=== PATIENT | female | born 1940 | race Caucasian/White ===

== ENCOUNTER → 2017-03-05 | Outpatient (CLI) | payer OTHER | END | disposition home or self-care (01) | LOC: PCVCCLINIC 12:47 | PROVIDERS: ATTEND Internal Medicine Cardiovascular Disease | DX: I25.10 Atherosclerotic heart disease of native coronary artery without angina pectoris (principal); I10 Essential (primary) hypertension; E78.5 Hyperlipidemia, unspecified; K21.9 Gastro-esophageal reflux disease without esophagitis; J44.9 Chronic obstructive pulmonary disease, unspecified; I77.9 Disorder of arteries and arterioles, unspecified; Z83.49 Family history of other endocrine, nutritional and metabolic diseases; Z72.0 Tobacco use; Z82.49 Family history of ischemic heart disease and other diseases of the circulatory system; Z79.899 Other long term (current) drug therapy; Z88.2 Allergy status to sulfonamides | CPT/HCPCS: 80061; 93005; G0463 ==

== ENCOUNTER → 2017-08-14 | Outpatient (CLI) | payer OTHER ==
[~2017-08-14] MED LIST: REGADENOSON 0.4 MG/5 ML DISP.SYRIN. IV
== END | disposition home or self-care (01) ==
LOC: PCVCIMAG 09:00
DX: R07.9 Chest pain, unspecified (principal); I10 Essential (primary) hypertension; E78.5 Hyperlipidemia, unspecified; I25.10 Atherosclerotic heart disease of native coronary artery without angina pectoris; Z72.0 Tobacco use
CPT/HCPCS: 78452; 93017; A9500; J2785

== ENCOUNTER → 2018-02-26 | Outpatient (CLI) | payer OTHER | END | disposition home or self-care (01) | LOC: PCVCCLINIC 13:21 | PROVIDERS: ATTEND Internal Medicine Cardiovascular Disease | DX: I25.10 Atherosclerotic heart disease of native coronary artery without angina pectoris (principal); R94.31 Abnormal electrocardiogram [ECG] [EKG]; M25.551 Pain in right hip; E78.00 Pure hypercholesterolemia, unspecified; I10 Essential (primary) hypertension; J43.9 Emphysema, unspecified; I77.9 Disorder of arteries and arterioles, unspecified; I48.2 Chronic atrial fibrillation; F17.210 Nicotine dependence, cigarettes, uncomplicated; Z72.89 Other problems related to lifestyle; Z79.82 Long term (current) use of aspirin; Z79.899 Other long term (current) drug therapy | CPT/HCPCS: 80061; 93005; G0463 ==

== ENCOUNTER → 2018-03-28 | Outpatient (CLI) | payer OTHER ==
--- NOTE | 2018-03-28 12:29 | PCVCIMAG ---
APPROVED REPORT Study performed: 03/28/2018 11:21:58 EXAM: Comprehensive 2D, Doppler, and color-flow Echocardiogram Patient Location: Echo lab Room #: 2Status: routine BSA: 1.61 HR: 65 bpmBP: 176/82 mmHg Rhythm: NSR Other Information Study Quality: Good Risk Factors: Cardiac Risk Factors: HTN, Hyperlipidemia, Smoking Indications COPD CAD Hypertension/HDD Hx PAF,Tobacco use,emphysema 2D Dimensions IVSd: 9.93 (7-11mm)LVOT Diam: 19.99 (18-24mm) LVDd: 53.62 mm PWd: 8.09 (7-11mm)Ascending Ao: 28.80 (22-36mm) LVDs: 29.55 (25-40mm) Left Atrium: 40.79 (27-40mm) Aortic Root: 23.40 mm LV Single Plane 4CH: 62.50 % LV Single Plane 2CH: 78.57 % Biplane EF: 71.2 % Volumes Left Atrial Volume (Systole) Single Plane 4CH: 84.10 mLSingle Plane 2CH: 83.00 mL Biplane LA Volume: 84.00 mLLA ESV Index: 52.00 mL/m2 Aortic Valve AoV Peak Tone.: 1.60 m/s AO Peak Gr.: 10.28 mmHgLVOT Max P.57 mmHg LVOT Max V: 1.18 m/s LACY Vmax: 2.31 cm2 Mitral Valve E/A Ratio: 1.0 MV Decel. Time: 176.55 ms MV E Max Tone.: 0.79 m/s MV A Tone.: 0.78 m/s IVRT: 89.97 ms TDI E/Lateral E': 19.75E/Medial E': 15.80 Medial E' Tone.: 0.05 m/s Lateral E' Tone.: 0.04 m/s Pulmonary Valve PV Peak Tone.: 0.95 m/sPV Peak Gr.: 3.61 mmHg Pulmonary Vein P Vein S: 0.51 m/sP Vein A: 0.43 m/s P Vein D: 0.47 m/sP Vein A Dur.: 107.3 msec P Vein S/D Ratio: 1.09 Tricuspid Valve TV Vmax: 0.60 m/s Left Ventricle The left ventricle is normal size. There is normal LV segmental wall motion. There is normal left ventricular wall thickness. Left ventricular systolic function is normal. The left ventricular ejection fraction is within the normal range. LVEF is 60-65%. The left ventricular diastolic function is normal. Right Ventricle The right ventricle is normal size. The right ventricular systolic function is normal. Atria Left atrium is severely dilated. The right atrium size is normal. Aortic Valve Aortic valve is trileaflet. The aortic valve is normal in structure. No aortic regurgitation is present. There is no aortic valvular stenosis. Mitral Valve The mitral valve is normal in structure. There is no mitral valve regurgitation noted. No evidence of mitral valve stenosis. Tricuspid Valve The tricuspid valve is normal in structure. Unable to assess PA pressure due to a lack of tricuspid regurgitation. No apparent pulmonary hypertension. Pulmonic Valve The pulmonary valve is normal in structure. There is no pulmonic valvular regurgitation. Great Vessels The aortic root is normal in size. The ascending aorta is normal in size. Aortic arch is normal in caliber. IVC is normal in size and collapses >50% with inspiration. Pericardium There is no pericardial effusion. There is no pleural effusion. <Conclusion> The left ventricle is normal size. LVEF is 60-65%. The left ventricular diastolic function is normal. The right ventricle is normal size. Left atrium is severely dilated. The right atrium size is normal. Aortic valve is trileaflet. The aortic valve is normal in structure. There is no mitral valve regurgitation noted. Unable to assess PA pressure due to a lack of tricuspid regurgitation. No apparent pulmonary hypertension. The aortic root is normal in size. There is no pericardial effusion.
== END | disposition home or self-care (01) ==
LOC: PCVCINTER 11:04
PROVIDERS: ATTEND Internal Medicine Cardiovascular Disease
DX: I25.10 Atherosclerotic heart disease of native coronary artery without angina pectoris (principal); I48.0 Paroxysmal atrial fibrillation; Z72.0 Tobacco use; I10 Essential (primary) hypertension; J43.9 Emphysema, unspecified; I36.1 Nonrheumatic tricuspid (valve) insufficiency; M19.90 Unspecified osteoarthritis, unspecified site; E78.00 Pure hypercholesterolemia, unspecified; F41.9 Anxiety disorder, unspecified; K21.9 Gastro-esophageal reflux disease without esophagitis; Z82.49 Family history of ischemic heart disease and other diseases of the circulatory system; Z79.899 Other long term (current) drug therapy; Z79.82 Long term (current) use of aspirin
CPT/HCPCS: 93306

== ENCOUNTER → 2018-09-03 | Outpatient (CLI) | payer OTHER | END | disposition home or self-care (01) | LOC: PCVCCLINIC 15:03 | PROVIDERS: ATTEND Internal Medicine Cardiovascular Disease | DX: I25.10 Atherosclerotic heart disease of native coronary artery without angina pectoris (principal); I10 Essential (primary) hypertension; E78.00 Pure hypercholesterolemia, unspecified; J43.9 Emphysema, unspecified; I77.9 Disorder of arteries and arterioles, unspecified; Z72.0 Tobacco use | CPT/HCPCS: 36415; 80061; 93005; G0463 ==

== ENCOUNTER → 2019-04-14 | Outpatient (CLI) | payer OTHER | END | disposition home or self-care (01) | LOC: PCVCCLINIC 15:43 | PROVIDERS: ATTEND Internal Medicine Cardiovascular Disease | DX: I25.10 Atherosclerotic heart disease of native coronary artery without angina pectoris (principal); E78.00 Pure hypercholesterolemia, unspecified; I65.23 Occlusion and stenosis of bilateral carotid arteries; I10 Essential (primary) hypertension; I48.0 Paroxysmal atrial fibrillation; J44.9 Chronic obstructive pulmonary disease, unspecified; F17.210 Nicotine dependence, cigarettes, uncomplicated; Z79.899 Other long term (current) drug therapy | CPT/HCPCS: 36415; 80061; 93005; G0463 ==

== ENCOUNTER → 2019-04-23 | Outpatient (CLI) | payer OTHER ==
[~2019-04-23] MED LIST changes: -REGADENOSON 0.4 MG/5 ML DISP.SYRIN. IV; +REGADENOSON 0.4 MG/5 ML DISP.SYRIN. IV ONE
--- NOTE | 2019-04-23 10:36 | PCVCIMAG ---
APPROVED REPORT Study performed: 04/23/2019 07:58:40 EXAM: Comprehensive 2D, Doppler, and color-flow Echocardiogram Patient Location: Echo lab Room #: 3Status: routine BSA: 1.63 HR: 63 bpmBP: 136/78 mmHg Rhythm: NSR Other Information Study Quality: Adequate Risk Factors: Cardiac Risk Factors: HTN, Hyperlipidemia, Smoking Indications COPD Atrial Fibrillation CAD Hypertension/HDD 2D Dimensions IVSd: 8.56 (7-11mm)LVOT Diam: 20.00 (18-24mm) LVDd: 39.25 mm PWd: 10.49 (7-11mm)Ascending Ao: 30.08 (22-36mm) LVDs: 29.08 (25-40mm) Left Atrium: 41.27 (27-40mm) Aortic Root: 29.27 mm LV Single Plane 4CH: 63.80 % LV Single Plane 2CH: 67.38 % Biplane EF: 66.0 % Volumes Left Atrial Volume (Systole) Single Plane 4CH: 57.94 mLSingle Plane 2CH: 57.89 mL LA ESV Index: 37.00 mL/m2 Aortic Valve AoV Peak Tone.: 1.53 m/s AO Peak Gr.: 9.30 mmHgLVOT Max P.01 mmHg LVOT Max V: 1.00 m/s LACY Vmax: 2.03 cm2 Mitral Valve E/A Ratio: 0.9 MV Decel. Time: 223.85 ms MV E Max Tone.: 0.92 m/s MV A Tone.: 0.98 m/s IVRT: 76.12 ms TDI E/Lateral E': 15.33E/Medial E': 18.40 Medial E' Tone.: 0.05 m/s Lateral E' Tone.: 0.06 m/s Pulmonary Valve PV Peak Tone.: 0.82 m/sPV Peak Gr.: 2.70 mmHg Pulmonary Vein P Vein S: 0.43 m/sP Vein A: 0.00 m/s P Vein D: 0.32 m/sP Vein A Dur.: 93.4 msec P Vein S/D Ratio: 1.34 Tricuspid Valve RAP Estimate: 7.00 mmHg Left Ventricle The left ventricle is normal size. There is normal LV segmental wall motion. There is normal left ventricular wall thickness. Left ventricular systolic function is normal. The left ventricular ejection fraction is within the normal range. LVEF is 60-65%. Moderate diastolic dysfunction is present (pseudonormal filling). Right Ventricle The right ventricle is normal size. The right ventricular systolic function is normal. Atria The left atrium size is normal. The right atrium size is normal. Aortic Valve The aortic valve is normal in structure. No aortic regurgitation is present. There is no aortic valvular stenosis. Mitral Valve The mitral valve is normal in structure. Trace to mild mitral regurgitation. No evidence of mitral valve stenosis. Tricuspid Valve The tricuspid valve is normal in structure. Trace tricuspid regurgitation. Unable to assess PA pressure. Pulmonic Valve The pulmonary valve is normal in structure. There is no pulmonic valvular regurgitation. Great Vessels The aortic root is normal in size. IVC is normal in size and collapses >50% with inspiration. Pericardium There is no pericardial effusion. <Conclusion> The left ventricle is normal size. LVEF is 60-65%. Moderate diastolic dysfunction is present (pseudonormal filling). The right ventricle is normal size. The left atrium size is normal. The aortic valve is normal in structure. Trace to mild mitral regurgitation. Trace tricuspid regurgitation. Unable to assess PA pressure. The aortic root is normal in size. There is no pericardial effusion.
--- NOTE | 2019-04-23 14:01 | PCVCIMAG ---
APPROVED REPORT Imaging Protocol: Rest Tc-99m/Stress Tc-99m 1 day Study performed: 04/23/2019 08:56:14 Indication: CAD, P-Atrial Fibrillation Patient Location: Out-Patient Stress Nurse: Jeanne Diaz RN, Lily Chang RN VA Tech:Alessia CHINEDU HernándezMT Ht: 5 ft 3 in Wt: 135 lbs BSA: 1.64 m2 HR: 63 bpm BP: 184/84 mmHg BMI: 23.9 Rhythm: Sinus Rhythm, nonspecific ST-T abnormalities Medical History Medical History: CVD, HTN, Hyperlipidemia, Current Smoker Medications: Amlodipine, Statin, Edarbyclor Allergies: Sulfa Cardiac Risk Factors: Age Previous Cardiac Procedures: 2018 CATH - LAD 60-70% Occluded Pretest Chest Pain Characteristics: No chest pain Exercise History: Indeterminate Resting Data Rest SPECT myocardial perfusion imaging was performed in supine position 45 minutes following the intravenous injection of 10.6 mCi of Tc-99m Sestamibi. Time of rest injection: 0845 Date: 04/23/2019 Administration Route: IV Administration Site: Right AC Pharmacologic Stress Pharmacologic stress test was performed by injecting Regadenoson 0.4 mg IV push over 10-15 seconds immediately followed by the intravenous injection of 32.7 mCi of Tc-99m Sestamibi. Time of stress injection: 1000 Date: 04/23/2019 Administration Route: IV Administration Site: Right AC Gated Stress SPECT was performed 45 minutes after stress injection. The images were gated to evaluate regional wall motion and calculate left ventricular ejection fraction. Stress Test Details Stress Test: Pharmacologic stress testing performed using 0.4 mg of regadenoson per 5 mL given IV over 10 seconds. Reason for pharmacologic stress test: physical limitation, neuropathy. HRMax Heart Rate (APMHR): 142 bpm Resting HR: 63 bpmTarget HR (85% APMHR): 120 bpm Max HR Achieved: 89 bpm % of APMHR: 62 Recovery HR: 83 bpm BP Resting BP: 184/84 mmHg Max BP: 175/84 mmHg Recovery BP: 184/80 mmHg ECG Resting ECG: Sinus Rhythm, nonspecific ST-T abnormalities Stress ECG: Sinus Rhythm, nonspecific ST-T abnormalities Arrhythmia: PAC's Recovery ECG: Sinus Rhythm, nonspecific ST-T abnormalities Clinical Reason for Termination: Completed protocol Stress Symptoms: Dyspnea Symptoms resolved with caffeine. Stress ECG Conclusion ECG: Non-ischemic Study Quality Study: Good Study Data Post stress, the left ventricular ejection was 72%.. SSS: 3 SRS: 1 SDS: 2 TID = 0.93. Perfusion No evidence of stress induced ischemia or prior myocardial infarction. Wall Motion Normal left ventricular size and function with no regional wall motion abnormalities. Nuclear Conclusion No evidence of stress induced ischemia or prior myocardial infarction. Normal left ventricular size and function with no regional wall motion abnormalities. Post stress, the left ventricular ejection was 72%. No change since prior study dated August 2017. Interpreted by: Carlos Arizmendi MD Electronically Approved: 04/23/2019 13:36:25 <Conclusion> ECG: Non-ischemic
== END | disposition home or self-care (01) ==
LOC: PCVCIMAG 09:02
PROVIDERS: ATTEND Internal Medicine Cardiovascular Disease
DX: I25.10 Atherosclerotic heart disease of native coronary artery without angina pectoris (principal); I48.0 Paroxysmal atrial fibrillation; I10 Essential (primary) hypertension; J44.9 Chronic obstructive pulmonary disease, unspecified; F17.200 Nicotine dependence, unspecified, uncomplicated; E78.00 Pure hypercholesterolemia, unspecified
CPT/HCPCS: 78452; 93017; 93306; A9500; J2785